=== PATIENT | female | born 1970 | race Caucasian/White ===

== ENCOUNTER → 2021-07-07 10:58 | Outpatient (BNVA) | payer MEDICAID, SELFPAY | PROVIDERS: Referring Provider Nurse Practitioner Family; Visit Provider Obstetrics & Gynecology | DX: N89.8 Other specified noninflammatory disorders of vagina (principal) | CPT/HCPCS: 87481; 87512; 87798; 87799; 88305 ==

== ENCOUNTER 2022-10-05 10:47 | Outpatient (CLI) | payer MEDICAID, SELFPAY ==
--- NOTE | 2022-10-05 10:56 | MM_ITS ---
WS: [id number] SCREENING DIGITAL BREAST TOMOSYNTHESIS MAMMOGRAM WITH CAD HISTORY: SCREENING COMPARISON: None available. Bilateral CC and MLO with tomosynthesis and synthetic mammography submitted. Computer aided detection analyzed. Breast composition: There are scattered areas of fibroglandular density. 9 mm lobulated mass in the l ateral posterior LEFT breast near 3:00. This may be a lymph node but is atypical and needs to be furt her evaluated. May be 2 adjacent lymph nodes. There is an additional 9 mm asymmetry in the posterior RIGHT breast towards the axillary tail seen only on the MLO projection. This also needs additional ev aluation. Benign calcifications in each breast. MM/[place] [id number] IMPRESSION: BI-RADS: 0-Incomplete: Need additional imaging evaluation FOLLOW UP: Need Additional Imaging LEFT breast: Spot compression views (CC and MLO). True ML. Ultrasound to follow if abnormality persists. RIGHT breast: Spot compression views (exaggerated lateral CC and MLO). True ML. Ultrasound to follow if abnormality persists.
== END 2022-10-05 10:48 | disposition home or self-care (01) ==
LOC: RAD 10:47
PROVIDERS: PCP Nurse Practitioner Family; Visit Provider Nurse Practitioner Family
DX: Z12.31 Encounter for screening mammogram for malignant neoplasm of breast (principal)
CPT/HCPCS: 77063; 77067

== ENCOUNTER 2022-11-08 09:39 | Outpatient (CLI) | payer MEDICAID, SELFPAY ==
--- NOTE | 2022-11-08 09:52 | MM_ITS ---
WS: [id number] ADDITIONAL VIEWS BILATERAL MAMMOGRAM AND BILATERAL BREAST ULTRASOUND, WITH DIGITAL BREAST tomosynthes is. HISTORY: Bilateral upper outer quadrant masses, suspect lymph nodes. No prior studies for comparison to demonstrate long-term stability. COMPARISON: 10/05/2022 Right breast: Persistent 9 mm mass upper outer quadrant measures 9 mm. Left breast: Persistent 9 mm mass upper outer quadrant measures 9 mm. There is fatty hilum. BREAST ULTRASOUND RIGHT: Predominantly hypoechoic nodule in the RIGHT breast at 10:00, 8 cm from the nipple measures 7 x 4 x 8 mm. Fatty hilum is asymmetric. Suspect this is a benign lymph node. LEFT: Hypoechoic nodule measures 6 x 2 x 9 mm LEFT breast 2:00, 6 cm from the nipple. Corresponds to the mammographic abnormality and is probably a benign lymph node. Very slight asymmetry of the hilum therefore follow-up will be recommended. MM/[place] [id number] IMPRESSION: BI-RADS: 3-Probably Benign FOLLOW UP: 6 Month Follow-up Recommend 6 month ultrasound follow-up of each breast limited to the upper-oute r quadrants. I favor these are both benign lymph nodes within each breast. The ashok are very slightly asymmetric therefore ultrasound follow-up is recommended .
== END 2022-11-08 09:40 | disposition home or self-care (01) ==
LOC: RAD 09:47
PROVIDERS: PCP Nurse Practitioner Family; Visit Provider Nurse Practitioner Family
DX: N63.11 Unspecified lump in the right breast, upper outer quadrant (principal); N63.21 Unspecified lump in the left breast, upper outer quadrant
CPT/HCPCS: 76642; 77062; G0279

== ENCOUNTER 2023-07-09 08:16 | Outpatient (CLI) | payer MEDICAID, SELFPAY ==
--- NOTE | 2023-07-09 08:21 | US_ITS ---
WS: [id number] ULTRASOUND BILATERAL BREAST, limited HISTORY: ABNORMAL MAMMOGRAM OF BOTH BREASTS-6 MONTH FOLLOW UP COMPARISON: 11/08/2022 TECHNIQUE: 2-D and Doppler. RIGHT breast: No change in the ovoid mass at 10:00, 8 cm from the nipple measuring 1.5 x 1.3 x 0.6 cm . No increased vascularity. LEFT breast: No change in the hypoechoic mass at 2:00, 6 cm from the nipple measuring 0.8 x 0.7 x 0.4 cm. IMPRESSION: US/US breast BI limited* [id number] BI-RADS: 2-Benign FOLLOW-UP: See Report Ultrasound findings are most consistent with stable benign intramammary lymph n odes. Recommend patient return to annual screening mammography. Annual mammogra m should be in September 2023.
== END 2023-07-09 08:17 | disposition home or self-care (01) ==
LOC: RAD 08:16
PROVIDERS: PCP Nurse Practitioner Family; Visit Provider Nurse Practitioner Family
DX: R92.8 Other abnormal and inconclusive findings on diagnostic imaging of breast (principal)
CPT/HCPCS: 76642

== ENCOUNTER → 2024-03-13 09:49 | Outpatient (BNVA) | payer MEDICAID, SELFPAY | PROVIDERS: PCP Nurse Practitioner Family; Visit Provider Podiatrist Foot & Ankle Surgery | DX: M79.671 Pain in right foot (principal); S92.421A Displaced fracture of distal phalanx of right great toe, initial encounter for closed fracture; W01.0XXA Fall on same level from slipping, tripping and stumbling without subsequent striking against object, initial encounter | CPT/HCPCS: 73630 ==

== ENCOUNTER → 2024-06-04 13:30 | Outpatient (BNVA) | payer MEDICAID, SELFPAY | PROVIDERS: PCP Nurse Practitioner Family; Visit Provider Podiatrist Foot & Ankle Surgery | DX: S92.421A Displaced fracture of distal phalanx of right great toe, initial encounter for closed fracture (principal); X58.XXXA Exposure to other specified factors, initial encounter | CPT/HCPCS: 73630 ==